=== PATIENT | female | born 1960 | race African-American/Black ===

== ENCOUNTER 2019-11-28 21:51 | Observation (INO) ==
[2019-11-28] MEDS ORDERED: Azithromycin 500 MG in 0.9 % Sodium Chloride 250 ML IVPB ONE (22:14)
[2019-11-28] MEDS ORDERED: 0.9 % Sodium Chloride 1,000 ML IVC ONE (22:14)
[2019-11-28] MEDS ORDERED: cefTRIAXone 2,000 MG in Water for inj. (sterile) 10 ML IVP ONE (22:14)
[2019-11-28] MEDS ORDERED: methylPREDNISolone 125 MG/2 ML VIAL IVP ONE (22:14)
[2019-11-28] MEDS ORDERED: Ipratropium/Albuterol Neb 3 ML IH ONE (22:14)
[2019-11-28 22:54] LABS: Basophils % 0.2 %; Eosinophils % 0.1 %; Hematocrit 40.9 % (35.3-44.9); Hemoglobin 13.6 g/dL (11.5-15.4); Immature Granulocytes % 0.4 % (0-4); Lymphocytes # 1.3 K/mcL (0.6-4.6); Lymphocytes % 13.4 %; Mean Corpuscular HGB Conc 33.3 g/dL (31.6-35.5); Mean Corpuscular Hemoglobin 30.1 pg (28.0-33.3); Mean Corpuscular Volume 90.5 fL (83.0-100.0); Mean Platelet Volume 9.5 fL (9.4-12.4); Monocytes # 0.6 K/mcL (0.0-1.3); Monocytes % 5.8 %; Neutrophils # 7.7 K/mcL (1.6-8.9); Platelet Count 279 K/mcL (140-400); Red Blood Count 4.52 M/mcL (3.82-4.97); Red Cell Distribution Width 13.1 % (11.5-14.5); Segmented Neutrophils % 80.1 %; White Blood Count 9.7 K/mcL (4.3-11.1)
[2019-11-28 23:15] LABS: Alanine Aminotransferase 53 Units/L (7-52); Albumin 4.2 g/dL (3.5-5.7); Albumin/Globulin Ratio 0.9 (1.1-2.2); Alkaline Phosphatase 243 Units/L (34-104); Aspartate Amino Transferase 36 Units/L (13-39); BUN/Creatinine Ratio 18 (6-26); Bilirubin,Direct 0.1 mg/dL (0.0-0.2); Bilirubin,Indirect 0.3 mg/dL (0.0-1.0); Bilirubin,Total 0.4 mg/dL (0.3-1.0); Blood Urea Nitrogen 19 mg/dL (8-23); Calcium 9.7 mg/dL (8.6-10.3); Carbon Dioxide 25 mEq/L (23-29); Chloride 95 mEq/L (98-107); Globulin 4.7 g/dL (2.4-3.5); Glucose 111 mg/dL (70-105); Osmolality,Calculated 277 (280-300); Potassium 3.6 mEq/L (3.5-5.1); Sodium 132 mEq/L (136-145); Total Protein 8.9 g/dL (6.4-8.9); Troponin I < 0.03 ng/mL (< 0.04); eGFR For African Americans > 60 (> 60); eGFR For Non-African Americans 55 (> 60)
[2019-11-29] MEDS ORDERED: Mag Hydrox/Al Hydrox/Simeth 30 ML UDC PO PRN (02:34)
[2019-11-29] MEDS ORDERED: Naloxone 0.4 MG/ML INJ IVP PRN (02:34)
[2019-11-29] MEDS ORDERED: Albuterol 2.5 MG/3 ML NEBULIZER IH PRN (02:34)
[2019-11-29] MEDS ORDERED: Ondansetron ODT 4 MG TAB.RAPDIS SL PRN (02:34)
[2019-11-29] MEDS ORDERED: MOM Conc 10 ML UD.LIQ PO PRN (02:34)
[2019-11-29] MEDS: 0.9 % Sodium Chloride 1,000 ML IVC SCH ×2 (03:18→09:18)
[2019-11-29] MEDS: Ipratropium/Albuterol Neb 3 ML IH SCH ×4 (04:33→21:55)
[2019-11-29] MEDS ORDERED: predniSONE 20 MG TABLET PO SCH (08:00)
[2019-11-29] MEDS ORDERED: GuaiFENesin/Codeine Oral Soln 5 ML UDC PO PRN (08:33)
[2019-11-29] MEDS: amLODIPine 5 MG TABLET PO SCH (08:52)
[2019-11-29] MEDS ORDERED: cefTRIAXone 2,000 MG in 0.9 % Sodium Chloride Mini Bag 100 ML IVPB SCH (09:15)
[2019-11-29] MEDS ORDERED: Acetaminophen 325 MG TABLET PO PRN (11:01)
[2019-11-29] MEDS: MethylPREDNISolone 40 MG/ML VIAL IVP SCH ×3 (11:35→23:47)
[2019-11-29] MEDS: QUEtiapine Fumarate 100 MG TABLET PO SCH (21:59)
[2019-11-29] MEDS: Mirtazapine 15 MG TABLET PO SCH (22:00)
[2019-11-29] MEDS: Azithromycin 500 MG in 0.9 % Sodium Chloride 250 ML IVPB SCH (22:00)
[2019-11-29] MEDS: cefTRIAXone 1,000 MG in Water for inj. (sterile) 10 ML IVP SCH (22:01)
[2019-11-29] MEDS ORDERED: Azithromycin 500 MG in 0.9 % Sodium Chloride 250 ML IVPB SCH (23:00)
[2019-11-30] MEDS: Ipratropium/Albuterol Neb 3 ML IH SCH ×4 (04:07→22:34)
[2019-11-30] MEDS: MethylPREDNISolone 40 MG/ML VIAL IVP SCH ×4 (04:59→23:36)
[2019-11-30 07:21] LABS: Basophils % 0.1 %; Hematocrit 37.5 % (35.3-44.9); Hemoglobin 12.1 g/dL (11.5-15.4); Immature Granulocytes % 0.3 % (0-4); Lymphocytes # 0.7 K/mcL (0.6-4.6); Mean Corpuscular HGB Conc 32.3 g/dL (31.6-35.5); Mean Corpuscular Hemoglobin 29.8 pg (28.0-33.3); Mean Corpuscular Volume 92.4 fL (83.0-100.0); Mean Platelet Volume 9.7 fL (9.4-12.4); Monocytes # 0.4 K/mcL (0.0-1.3); Monocytes % 4.2 %; Neutrophils # 7.7 K/mcL (1.6-8.9); Platelet Count 249 K/mcL (140-400); Red Blood Count 4.06 M/mcL (3.82-4.97); Red Cell Distribution Width 13.1 % (11.5-14.5); Segmented Neutrophils % 87.4 %; White Blood Count 8.8 K/mcL (4.3-11.1)
[2019-11-30] MEDS: amLODIPine 5 MG TABLET PO SCH ×2 (08:45→11:26)
[2019-11-30] MEDS ORDERED: *HR* Enoxaparin 40 MG/0.4 ML SYRINGE SQ ONE (12:12)
[2019-11-30] MEDS: QUEtiapine Fumarate 100 MG TABLET PO SCH (22:13)
[2019-11-30] MEDS: Mirtazapine 15 MG TABLET PO SCH (22:13)
[2019-11-30] MEDS: cefTRIAXone 1,000 MG in Water for inj. (sterile) 10 ML IVP SCH (22:14)
[2019-11-30] MEDS: Azithromycin 500 MG in 0.9 % Sodium Chloride 250 ML IVPB SCH (22:14)
[2019-12-01] MEDS: Ipratropium/Albuterol Neb 3 ML IH SCH ×4 (04:12→15:53)
[2019-12-01] MEDS: MethylPREDNISolone 40 MG/ML VIAL IVP SCH (05:25)
[2019-12-01] MEDS ORDERED: *HR* Enoxaparin 40 MG/0.4 ML SYRINGE SQ SCH (06:00)
[2019-12-01] MEDS: amLODIPine 5 MG TABLET PO SCH (08:52)
[2019-12-01 14:22] VITALS: BP 127/74
[2019-12-01] MEDS ORDERED: MethylPREDNISolone 40 MG/ML VIAL IVP SCH (16:00)
[2019-12-01] MEDS: Mirtazapine 15 MG TABLET PO SCH (19:18)
[2019-12-01] MEDS: QUEtiapine Fumarate 100 MG TABLET PO SCH (19:18)
== END 2019-12-01 19:59 | disposition home or self-care (01) ==
LOC: INPPIK 21:51 → EMEROOPIK 21:51 → SUATTDRO 11-29 01:54 → INPPIK 11-29 02:18
PROVIDERS: ADMIT Internal Medicine; ATTEND Family Medicine